=== PATIENT | male | born 1970 | race Caucasian/White ===

== ENCOUNTER 2021-01-30 08:02 | Inpatient (IN) | payer MEDICARE, OTHER ==
[~2021-01-30] VITALS: Ht 175.3 cm; Wt 74.8 kg
[2021-01-30 18:42] VITALS: BP 95/61
[2021-01-30] MEDS: ENSURE ENLIVE CHOC 237 ML CAN PO SCH (19:00)
[2021-01-30 20:00] VITALS: BP 92/67
--- NOTE | 2021-01-30 20:00 | NUR ---
MS PAINTER DECORATOR NOTES RECEIVED ON BED,DIRECT ADMIT FROM [facility],CAME IN AT 1830,MALE 50 YO,ALERT ORIENTED X3,BREATHING REGULAR,NOT I ANY FORM OF DISTRESS.NO SKIN ISSUES,ADMITTED FOR DEHYDRATION/PSYCHOSIS,ON 72 HOURS HOLD EXPIRING TOMORROW AT 1315,SITTER AT BEDSIDE FOR SAFETY,ADMITTED MED SURGE CASE UNDER DR CHIRINOS.AMBULATE WITH STEADY GAIT,ABLE TO VERBALIZED NEEDS.CALL LIGHT IN REACH,NEEDS ANTICIPATED.
[2021-01-30] MEDS ORDERED: MAGNESIUM HYDROXIDE 30 ML UDC PO PRN (20:30)
[2021-01-30] MEDS ORDERED: Z GUARD REMEDY 2 OZ OINT TP PRN (20:30)
[2021-01-30] MEDS ORDERED: ZOLPIDEM TARTRATE 5 MG TABLET PO PRN (20:30)
[2021-01-30] MEDS ORDERED: ONDANSETRON HCL/PF 4 MG/2 ML VIAL IVP PRN (20:30)
[2021-01-30] MEDS ORDERED: TEMAZEPAM 7.5 MG CAPSULE PO PRN (21:00)
[2021-01-30] MEDS: IV NS 0.9% 1,000 ML IV PRN (22:09)
--- NOTE | 2021-01-30 22:09 | NUR ---
MS RN NOTES STARTED ON IVF NS 75ML/HR RATE ORDERED.SALINE LOCK PLACE ON LEFT WRIST #22.
--- NOTE | 2021-01-30 22:30 | NUR ---
MS RN NOTES REFUSED IVF THIS TIME
--- NOTE | 2021-01-31 06:38 | NUR ---
MS RN NOTES SLEEP 5 HOURS LAST NIGHT WITHOUT PHARMACOLOGICAL INTERVENTION,CALM AND QUIET,FEELS HUNGRY ALL THE TIME.IVF REFUSED.SITTER AT BEDSIDE.WILL ENDORSE TO DAY NURSE FOR PAU.
[2021-01-31 07:27] LABS: BASOPHILS % (AUTO) 0.4 % (0.0-2.0); EOSINOPHILS % (AUTO) 4.3 % (0.0-6.0); HEMATOCRIT 43 % (39-51); HEMOGLOBIN 14.6 g/dL (13.5-17.5); LYMPHOCYTES # (AUTO) 1.1 /CMM (0.8-4.8); LYMPHOCYTES % (AUTO) 25.7 % (20.0-44.0); MEAN CORPUSCULAR HGB CONC 34 g/dl (31.0-36.0); MEAN CORPUSCULAR VOLUME 89 fL (80-96); MONOCYTES # (AUTO) 0.4 /CMM (0.1-1.30); MONOCYTES % (AUTO) 9.2 % (2.0-12.0); NEUTROPHILS # (AUTO) 2.5 /CMM (1.8-8.9); NEUTROPHILS % (AUTO) 60.4 % (43.0-81.0); PLATELET COUNT (AUTO) 229 /CMM (150-450); RED BLOOD CELL COUNT(AUTO) 4.87 MIL/uL (4.5-6.0); WHITE BLOOD COUNT (AUTO) 4.2 K/uL (4.3-11.0)
[2021-01-31 07:42] LABS: CALCIUM, SERUM 9.2 mg/dL (8.5-10.1); CREATININE 0.8 mg/dL (0.6-1.3); PHOSPHORUS 3.9 mg/dL (2.5-4.9); POTASSIUM 3.6 mmol/L (3.5-5.1)
[2021-01-31] MEDS: ENSURE ENLIVE CHOC 237 ML CAN PO SCH ×3 (07:54→17:53)
[2021-01-31] MEDS ORDERED: QUET300T2 PO (07:57)
[2021-01-31] MEDS ORDERED: TAMS-12 PO (07:57)
[2021-01-31] MEDS ORDERED: AMLO2.5T4 PO (07:57)
[2021-01-31] MEDS ORDERED: ESCI20TA PO (07:57)
[2021-01-31] MEDS ORDERED: OLAN10TA3 PO (07:57)
[2021-01-31] MEDS ORDERED: ROSU5TAB13 PO (07:57)
[2021-01-31] MEDS ORDERED: LORA-259 PO (07:57)
[2021-01-31 08:00] VITALS: BP 102/48
--- NOTE | 2021-01-31 08:00 | NUR ---
RN Opening note Received patient in bed AO x 3 sitter at bed side, patient c/o discomfort IV line. But no c/o physical distress or discomfort, skin is warm to touch, keep clean/dry. Respiratory even and unlabored on room air, no sob or distress observed. Kept elevated HOB for ensure airway and aspiration precaution also lowered bed position for safety, no SI/HI observed at this time. Call light within reach, will continue to monitor for safety.
[2021-01-31] MEDS: clonazePAM 0.5 MG TABLET PO PRN ×2 (11:40→23:11)
[2021-01-31] MEDS: OLANZAPINE 10 MG TABLET PO SCH (15:00)
--- NOTE | 2021-01-31 15:24 | NUR ---
Patient refused Zyprexa x 3, not given.
[2021-01-31 16:00] VITALS: BP 85/52
[2021-01-31] MEDS: ESCITALOPRAM OXALATE (10 MG) 10 MG TABLET PO SCH (17:55)
--- NOTE | 2021-01-31 18:31 | NUR ---
RN Closing note Patient on bed resting, no appears distress or discomfort. Also no observed SI/HI during the shift, skin is warm to touch, keep clean/dry, intact IV site on left hand 20g running NS at 75 ml/hr. Respiratory even and unlabored on juan air. Keep elevated HOB for ensure airway and aspiration precaution, also lowest bed position for safety. Sitter at bedside, Dr. Macedo mentioned patient discharge when patient stable. Call light within reach, will endorse to night club manager.
--- NOTE | 2021-01-31 19:30 | NUR ---
RN NOTES RECEIVED PT. AWAKE ON BED, A/OX2-3, NOT IN DISTRESS , DENIES PAIN, CALL LIGHT WITHIN REACH, SIDERAILSUPX2, CONTINUE TO MONITOR
[2021-01-31 20:00] VITALS: BP 89/55
[2021-01-31] MEDS: MAG HYDROX/AL HYDROX/SIMETH 30 ML UDC PO PRN (20:14)
--- NOTE | 2021-01-31 20:17 | NUR ---
RN NOTES COMPLAINED OF STOMACH UPSET- MAALOX 30 ML O GIVEN ORDERED
[2021-01-31 21:20] VITALS: BP 107/75
[2021-01-31] MEDS: TAMSULOSIN 0.4 MG CAP.SR.24H PO SCH (21:36)
[2021-01-31] MEDS: ATORVASTATIN 10 MG TABLET PO SCH (21:36)
[2021-01-31] MEDS: QUETIAPINE FUMARATE 100 MG TABLET PO SCH (21:36)
[2021-01-31] MEDS: IV NS 0.9% 1,000 ML IV PRN (23:19)
--- NOTE | 2021-01-31 23:29 | NUR ---
RN NOTES PT. IS VOMITING ZOFRAN 4 MG IV GIVEN ORDERED,
--- NOTE | 2021-01-31 23:30 | NUR ---
RN NOTES PT. IS ANXIOUS- KLONOPIN 0.5MG PO GIVEN ORDERED, V/ STABLE
--- NOTE | 2021-02-01 06:31 | NUR ---
RN NOTES SLEEPING BUT AROUSABLE, NOT IN DISTRESS, CALL LIGHT WITHIN REACH, [id number], PT. NEEDS ATTENDED
[2021-02-01 08:00] VITALS: BP 98/55
--- NOTE | 2021-02-01 08:00 | NUR ---
RN Opening note Received patient in bed AO x 2-3 confuse, does no appears distress or discomfort. Skin is warm to touch keep clean/dry, intact IV site. Respiratory even and unlabored on room air, no sob or distress observed. Kept elevated HOB for ensure airway and aspiration precaution also lowered bed position for safe. Call light within reach, will continue to monitor for safety.
[2021-02-01] MEDS: ENSURE ENLIVE CHOC 237 ML CAN PO SCH ×3 (08:32→17:01)
[2021-02-01] MEDS: AMLODIPINE BESYLATE 2.5 MG TABLET PO SCH (08:35)
[2021-02-01] MEDS: ESCITALOPRAM OXALATE (10 MG) 10 MG TABLET PO SCH (08:35)
[2021-02-01] MEDS: OLANZAPINE 10 MG TABLET PO SCH (08:35)
--- NOTE | 2021-02-01 08:35 | NUR ---
BP:98/55 will hold bp med.
[2021-02-01 16:00] VITALS: BP 95/56
--- NOTE | 2021-02-01 17:18 | NUR ---
RN Closing note Patient on bed, remains A O x 2-3, confuse. Respiratory even and unlabored on juan air. Skin is warm to touch, keep clean/dry. Keep elevated HOB for ensure airway and aspiration precaution, also lowest bed position for safety. Encouraged oral fluid intake as tolerated. Call light within reach, will endorse to scene shifter.
--- NOTE | 2021-02-01 19:20 | NUR ---
MS RN OPENING NOTES: RECEIVED PATIENT IN BED, AWAKE. A/O X3. NO S/S OF DISTRESS NOTED. CALL LIGHT WITHIN REACH. BED IN LOWEST AND LOCKED POSITION. PATIENT IS CALM AND COOPERATIVE AT THIS MOMENT.
[2021-02-01 20:00] VITALS: BP 98/46
[2021-02-01] MEDS: TAMSULOSIN 0.4 MG CAP.SR.24H PO SCH (21:06)
[2021-02-01] MEDS: ATORVASTATIN 10 MG TABLET PO SCH (21:06)
[2021-02-01] MEDS: QUETIAPINE FUMARATE 100 MG TABLET PO SCH (21:06)
[2021-02-01] MEDS: MAG HYDROX/AL HYDROX/SIMETH 30 ML UDC PO PRN (23:48)
--- NOTE | 2021-02-02 06:39 | NUR ---
MS RN CLOSING NOTES: PATIENT IN BED, ASLEEP, AROUSABLE. NO S/S OF DISTRESS NOTED. CALL LIGHT WITHIN REACH. BED IN LOWEST AND LOCKED POSITION. AMBULATORY, STEADY GAIT. NO COMPLAIN OF PAIN. PATIENT WAS CALM THROUGHOUT THE SHIFT.
[2021-02-02] MEDS: ENSURE ENLIVE CHOC 237 ML CAN PO SCH ×3 (08:45→18:26)
[2021-02-02] MEDS: AMLODIPINE BESYLATE 2.5 MG TABLET PO SCH (11:41)
[2021-02-02] MEDS: OLANZAPINE 10 MG TABLET PO SCH (11:41)
[2021-02-02] MEDS: ESCITALOPRAM OXALATE (10 MG) 10 MG TABLET PO SCH (11:41)
[2021-02-02 11:45] VITALS: BP 91/50
[2021-02-02] MEDS: MAG HYDROX/AL HYDROX/SIMETH 30 ML UDC PO PRN (11:56)
--- NOTE | 2021-02-02 11:56 | NUR ---
GIVEN MAALOX FOR GAS DISCOMFORT.
--- NOTE | 2021-02-02 12:30 | NUR ---
PT. STATES HAVING RUNS,NOT OBSERVED BY NURSE.PT. NOT EATING.
[2021-02-02 16:00] VITALS: BP 90/50
[2021-02-02] MEDS: ACETAMINOPHEN 325 MG TABLET PO PRN (16:01)
--- NOTE | 2021-02-02 16:07 | NUR ---
given tylenol 650 mg po for back pain.
--- NOTE | 2021-02-02 19:30 | NUR ---
MS RN OPENING NOTES: RECEIVED PATIENT IN BED, AWAKE. A/O X3. NO S/S OF DISTRESS NOTED. CALL LIGHT WITHIN REACH. BED IN LOWEST AND LOCKED POSITION. AMBULATORY. PATIENT IS CALM.
[2021-02-02 20:00] VITALS: BP 94/60
[2021-02-02] MEDS: TAMSULOSIN 0.4 MG CAP.SR.24H PO SCH (22:36)
[2021-02-02] MEDS: ATORVASTATIN 10 MG TABLET PO SCH (22:36)
[2021-02-02] MEDS: QUETIAPINE FUMARATE 100 MG TABLET PO SCH (22:36)
--- NOTE | 2021-02-03 07:50 | NUR ---
MS RN OPENING NOTE PATIENT IS IN BED RESTING. PATIENT IS IN NO ACUTE DISTRESS. PATIENT IS ON ROOM AIR, NO SOB NOTED. SAFETY PRECAUTIONS ARE ON. BED IN THE LOWEST POSITION. SIDE RAILS ARE UP, CALL LIGHT WITHIN REACH. WILL CONTINUE TO MONITOR CLOSELY THROUGHOUT THE SHIFT.
[2021-02-03 08:00] VITALS: BP 98/53
[2021-02-03] MEDS: ENSURE ENLIVE CHOC 237 ML CAN PO SCH ×3 (08:00→16:44)
--- NOTE | 2021-02-03 08:41 | NUR ---
MS RN NOTE PATIENT IS REFUSING NUTRITION/FOOD AT THE MOMENT, DOES NOT WANT TO DRINK OR EAT. DID NOT DRINK ENSURE, EDUCATED RISK VS BENEFITS.
[2021-02-03] MEDS: AMLODIPINE BESYLATE 2.5 MG TABLET PO SCH (09:00)
[2021-02-03] MEDS: ESCITALOPRAM OXALATE (10 MG) 10 MG TABLET PO SCH (10:20)
[2021-02-03] MEDS: OLANZAPINE 10 MG TABLET PO SCH (10:21)
[2021-02-03 16:00] VITALS: BP 99/54
[2021-02-03] MEDS: ACETAMINOPHEN 325 MG TABLET PO PRN (17:59)
--- NOTE | 2021-02-03 18:49 | NUR ---
MS RN CLOSING NOTE PATIENT IS IN BED RESTING. PATIENT IS IN NO ACUTE DISTRESS. PATIENT IS ON ROOM AIR, NO SOB NOTED. PATIENT IS EATING, SOME FOOD ICE CREAM, ENSURE, AND TRYING TO EAT LITTLE. SAFETY PRECAUTIONS ARE ON. BED IN THE LOWEST POSITION. SIDE RAILS ARE UP, CALL LIGHT WITHIN REACH. ENDORSE PATIENT TO WALLCOVERING HANGER NURSE FOR PAU.
[2021-02-03 20:00] VITALS: BP 87/55
[2021-02-03] MEDS: ATORVASTATIN 10 MG TABLET PO SCH (22:56)
[2021-02-03] MEDS: TAMSULOSIN 0.4 MG CAP.SR.24H PO SCH (22:56)
[2021-02-03] MEDS: QUETIAPINE FUMARATE 100 MG TABLET PO SCH (22:56)
--- NOTE | 2021-02-04 06:50 | NUR ---
MS RN CLOSING NOTE PATIENT IS IN BED RESTING. PATIENT IS IN NO APPARENT DISTRESS. PATIENT ON ROOM AIR NO APPARENT RESP DISTRESS. SAFETY PRECAUTIONS ARE ON. BED IN THE LOWEST POSITION. SIDE RAILS ARE UP, CALL LIGHT WITHIN REACH. ENDORSE PATIENT DAY NURSE FOR PAU.
--- NOTE | 2021-02-04 07:33 | NUR ---
MS/RN OPENING NOTE RECEIVED PATIENT FROM CITY EDITOR NURSE. PATIENT IS IN BED ASLEEP, EASILY WOKEN UP. A/0 X2-3, NO ACUTE DISTRESS NOTED. PATIENT IS ON ROOM AIR, TOLERATING WELL, BREATHING EVEN, NON LABORED, NO SOB NOTED. SAFETY MEASURES IN PLACE, BED LOCKED AND IN LOWEST POSITION, CALL LIGHT WITHIN REACH. WILL CONTINUE TO MONITOR AND ENSURE SAFETY.
[2021-02-04 08:03] VITALS: BP 90/55
[2021-02-04] MEDS: AMLODIPINE BESYLATE 2.5 MG TABLET PO SCH (09:00)
[2021-02-04] MEDS: OLANZAPINE 10 MG TABLET PO SCH (09:28)
[2021-02-04] MEDS: ESCITALOPRAM OXALATE (10 MG) 10 MG TABLET PO SCH (09:28)
[2021-02-04] MEDS: ENSURE ENLIVE CHOC 237 ML CAN PO SCH ×3 (09:53→16:23)
[2021-02-04 16:10] VITALS: BP 106/69
--- NOTE | 2021-02-04 17:30 | NUR ---
MS/LPN PER DIEM PATIENT DISCHARGED TO [facility] IN STABLE CONDITION. HEPLOCK REMOVED, PRESSURE DRESSING APPLIED, NAME BANDS REMOVED. ALL PERSONAL BELONGINGS ACCOUNTED FOR ON BELONGINGS LIST. EDUCATED PATIENT ON EXIT CARE/DISCHARGE TEACHING. REPORT WAS GIVEN TO ROBINSON WILCOX AT [facility]. COPY OF EXIT CARE PROVIDED TO PARAMEDICS. PATIENT LEFT UNIT FLOOR ACCOMPANIED BY 2 PARAMEDICS VIA GURNEY.
== END 2021-02-04 17:30 | DRG 885 ==
LOC: GPSOV 18:05 → MED 21:22
PROVIDERS: ADMIT Psychiatry & Neurology Psychiatry; ATTEND Internal Medicine
DX: F29 Unspecified psychosis not due to a substance or known physiological condition (principal); F41.9 Anxiety disorder, unspecified; E78.5 Hyperlipidemia, unspecified; F32.9 Major depressive disorder, single episode, unspecified; R62.7 Adult failure to thrive; Z73.6 Limitation of activities due to disability; R27.8 Other lack of coordination; N40.0 Benign prostatic hyperplasia without lower urinary tract symptoms; Z91.81 History of falling; I10 Essential (primary) hypertension; Z79.899 Other long term (current) drug therapy; E86.0 Dehydration; Z20.822 Contact with and (suspected) exposure to COVID-19
CPT/HCPCS: 36415; 80048-TC; 83735-TC; 84100-TC; 85025-TC; 87081-TC; G0378; J2405; J7030